=== PATIENT | female | born 1990 | race Caucasian/White ===

== ENCOUNTER 2023-07-17 22:24 | Emergency (ER) | payer BC ==
[~2023-07-17] VITALS: Ht 165.1 cm; Wt 62.6 kg
[2023-07-17 23:12] VITALS: TEMP 98.8
[2023-07-17 23:52] VITALS: BP 125/72; O2SAT 98
== END 2023-07-17 23:53 | disposition home or self-care (01) ==
LOC: ER 22:30
DX: B34.9 Viral infection, unspecified (principal)